=== PATIENT | male | born 2000 | race African-American/Black ===

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

== ENCOUNTER 2021-08-02 23:39 | Emergency (ER) | payer OTHER ==
[2021-08-03] MEDS ORDERED: Ketorolac Tromethamine 30 MG/ML VIAL ONE (00:09)
[2021-08-03] MEDS ORDERED: Morphine 10 MG/ML VIAL ONE (00:35)
[2021-08-03] MEDS ORDERED: Ondansetron PF 4 MG/2 ML Vial ONE (01:55)
[2021-08-03] MEDS ORDERED: Morphine 4 MG/ML VIAL ONE ×2 (01:55→02:54)
[2021-08-03 02:49] LABS: #Lymphocytes 1.2 thou/uL (1.20-3.40); #Monocytes 0.5 thou/uL (0.11-0.59); #Neutrophils 8.4 thou/uL (1.40-6.50); %Basophils 0.1 % (0.0-1.0); %Eosinophils 0.1 % (0.0-10.0); %Lymphocytes 12.3 % (28.0-48.0); %Monocytes 4.7 % (0.0-4.0); %Neutrophils 82.8 % (31.0-61.0); Hemoglobin 14.9 g/dL (14.0-18.0); Mean Corpuscular HGB CONC 33.2 g/dL (32.0-36.0); Mean Corpuscular Hemoglobin 30.2 pg (25.0-35.0); Mean Platelet Volume 7.5 fL (7.4-10.4); Platelet Count 263 thou/uL (130-400); RBC Distribution Width 12.5 % (11.5-14.5); Red Blood Cell (RBC) Count 4.93 mill/uL (4.00-5.20); White Blood Cell (WBC) Count 10.1 thou/uL (4.8-10.8)
[2021-08-03 03:01] LABS: ALT (SGPT) 200 U/L (8-55); AST (SGOT) 152 U/L (5-34); Albumin 4.3 g/dL (3.5-5.0); Alkaline Phosphatase 67 U/L (50-130); Anion Gap 17 mmol/L (10-20); BUN (Urea Nitrogen) 10 mg/dL (8.9-20.6); Bilirubin, Total 0.2 mg/dL (0.2-1.2); Calc. Creatinine Clearance 0 mL/min (70-130); Calcium 9.4 mg/dL (7.8-10.44); Carbon Dioxide 19 mmol/L (22-29); Chloride 106 mmol/L (98-107); Globulin 3.2 g/dL (2.4-3.5); Glucose 115 mg/dL (70-105); Potassium 4.4 mmol/L (3.5-5.1); Protein, Total 7.5 g/dL (6.0-8.3); Sodium 138 mmol/L (136-145)
[2021-08-03 03:50] LABS: SARS-CoV-2 NAA Rapid Test Not Detected (NotDetected)
[2021-08-03] MEDS ORDERED: Ketamine 50 MG/ML (10ML VIAL) ONE (04:06)
[2021-08-03] MEDS ORDERED: diphenhydrAMINE 50 MG/ML VIAL ONE (05:06)
== END 2021-08-03 05:10 | disposition short-term general hospital (02) ==
LOC: ERS 23:39
DX: S42.492A Other displaced fracture of lower end of left humerus, initial encounter for closed fracture (principal); S63.004A Unspecified dislocation of right wrist and hand, initial encounter; S09.90XA Unspecified injury of head, initial encounter; Z20.822 Contact with and (suspected) exposure to COVID-19; V47.6XXA Car passenger injured in collision with fixed or stationary object in traffic accident, initial encounter; Y92.410 Unspecified street and highway as the place of occurrence of the external cause
CPT/HCPCS: 29105; 29125; 70450; 72125; 80053; 85025; 96372; 96374; 96375; J1200; J1885; J2270; J2405; U0002

== ENCOUNTER 2022-01-30 16:05 | Emergency (ER) | payer OTHER ==
[2022-01-30] MEDS ORDERED: Ondansetron ODT 4 MG TAB ONE (16:47)
[2022-01-30] MEDS ORDERED: Dicyclomine 20 MG TAB ONE (16:47)
[2022-01-30] MEDS ORDERED: Acetaminophen 500 MG TAB ONE (16:47)
[2022-01-30] MEDS ORDERED: Ibuprofen 200 MG TAB ONE (16:47)
== END 2022-01-30 18:00 | disposition home or self-care (01) ==
LOC: ERS 16:05
DX: M79.602 Pain in left arm (principal); R19.7 Diarrhea, unspecified
CPT/HCPCS: Q0162

== ENCOUNTER 2022-02-01 16:00 | Emergency (ER) | payer OTHER ==
[2022-02-01 17:07] LABS: Hemoglobin 14.1 g/dL (14.0-18.0); Mean Corpuscular HGB CONC 31.9 g/dL (32.0-36.0); Mean Corpuscular Volume 90.9 fl (78.0-98.0); Mean Platelet Volume 8.2 fL (7.4-10.4); Platelet Count 251 thou/uL (130-400); RBC Distribution Width 13.1 % (11.5-14.5); Red Blood Cell (RBC) Count 4.87 mill/uL (4.00-5.20)
[2022-02-01 17:20] LABS: ALT (SGPT) 48 U/L (8-55); AST (SGOT) 28 U/L (5-34); Albumin 4.2 g/dL (3.5-5.0); Alkaline Phosphatase 83 U/L (50-130); Anion Gap 10 mmol/L (10-20); BUN (Urea Nitrogen) 9 mg/dL (8.9-20.6); Bilirubin, Total 0.5 mg/dL (0.2-1.2); Calc. Creatinine Clearance 0 mL/min (70-130); Calcium 9.5 mg/dL (7.8-10.44); Carbon Dioxide 24 mmol/L (22-29); Chloride 107 mmol/L (98-107); Estimated GFR 111; Globulin 2.9 g/dL (2.4-3.5); Glucose 90 mg/dL (70-105); Lipase 85 U/L (8-78); Potassium 3.6 mmol/L (3.5-5.1); Protein, Total 7.1 g/dL (6.0-8.3); Sodium 137 mmol/L (136-145)
[2022-02-01 17:21] LABS: Eosinophils 3 % (0-10); Lymphocytes 51 % (28-48); MDiff Complete? YES; Monocytes 5 % (0-4); Neutrophil 37 % (31-61); Platelet Morphology Comment Appears Adequate; RBC Morphology Normal; Reactive Lymphocytes 4 % (0-10)
== END 2022-02-01 17:52 | disposition home or self-care (01) ==
LOC: ERS 16:00
DX: R10.84 Generalized abdominal pain (principal)
CPT/HCPCS: 36415; 80053; 83690; 85025; 99284

== ENCOUNTER 2022-02-20 16:15 | Emergency (ER) | payer OTHER | END 2022-02-20 18:11 | disposition home or self-care (01) | LOC: ERS 16:15 | DX: S62.001A Unspecified fracture of navicular [scaphoid] bone of right wrist, initial encounter for closed fracture (principal); W18.30XA Fall on same level, unspecified, initial encounter ==

== ENCOUNTER 2022-02-25 15:26 | Emergency (ER) | payer OTHER | END 2022-02-25 16:17 | disposition home or self-care (01) | LOC: ERS 15:26 | DX: M25.531 Pain in right wrist (principal) | CPT/HCPCS: 99283 ==

== ENCOUNTER 2022-02-26 22:03 | Emergency (ER) | payer OTHER | END 2022-02-27 00:01 | disposition home or self-care (01) | LOC: ERS 22:03 | DX: G90.511 Complex regional pain syndrome I of right upper limb (principal) ==

== ENCOUNTER 2022-03-06 13:09 | Emergency (ER) | payer OTHER | END 2022-03-06 14:07 | disposition home or self-care (01) | LOC: ERS 13:09 | DX: M25.531 Pain in right wrist (principal) | CPT/HCPCS: 99281 ==

== ENCOUNTER 2022-03-26 16:41 | Emergency (ER) | payer OTHER ==
[2022-03-26] MEDS ORDERED: Ibuprofen 200 MG TAB ONE (17:19)
== END 2022-03-26 17:30 | disposition home or self-care (01) ==
LOC: ERS 16:41
DX: S60.222A Contusion of left hand, initial encounter (principal); W17.89XA Other fall from one level to another, initial encounter

== ENCOUNTER 2022-03-28 19:30 | Emergency (ER) | payer OTHER ==
[2022-03-28] MEDS ORDERED: Ketorolac Tromethamine 30 MG/ML VIAL ONE (19:55)
== END 2022-03-28 20:15 | disposition home or self-care (01) ==
LOC: ERS 19:30
DX: S50.02XA Contusion of left elbow, initial encounter (principal); V86.95XA Unspecified occupant of 3- or 4- wheeled all-terrain vehicle (ATV) injured in nontraffic accident, initial encounter
CPT/HCPCS: 96372; J1885

== ENCOUNTER 2022-03-29 22:43 | Emergency (ER) | payer OTHER ==
[2022-03-30] MEDS ORDERED: Acetaminophen 500 MG TAB ONE (00:51)
== END 2022-03-30 00:53 | disposition home or self-care (01) ==
LOC: ERS 22:43
DX: S50.02XA Contusion of left elbow, initial encounter (principal); V86.95XA Unspecified occupant of 3- or 4- wheeled all-terrain vehicle (ATV) injured in nontraffic accident, initial encounter
CPT/HCPCS: 99281

== ENCOUNTER 2022-04-03 21:21 | Emergency (ER) | payer OTHER | END 2022-04-04 01:46 | disposition home or self-care (01) | LOC: ERS 21:21 | DX: M25.531 Pain in right wrist (principal); G89.29 Other chronic pain; W01.0XXA Fall on same level from slipping, tripping and stumbling without subsequent striking against object, initial encounter ==

== ENCOUNTER 2022-04-24 23:55 | Emergency (ER) | payer OTHER | END 2022-04-25 01:59 | disposition home or self-care (01) | LOC: ERS 23:55 | DX: M79.602 Pain in left arm (principal); V86.56XA Driver of dirt bike or motor/cross bike injured in nontraffic accident, initial encounter ==

== ENCOUNTER 2022-04-26 14:37 | Emergency (ER) | payer OTHER | END 2022-04-26 15:32 | disposition home or self-care (01) | LOC: ERS 14:37 | DX: G89.18 Other acute postprocedural pain (principal); M79.602 Pain in left arm; F17.290 Nicotine dependence, other tobacco product, uncomplicated | CPT/HCPCS: 99283 ==

== ENCOUNTER 2024-05-11 15:24 | Emergency (ER) | payer OTHER, SELFPAY ==
[2024-05-11] MEDS ORDERED: Ketorolac Tromethamine 30 MG (1 mL) VIAL ONE (17:34)
== END 2024-05-11 17:59 ==
LOC: ERS 15:24
DX: M76.51 Patellar tendinitis, right knee (principal)
CPT/HCPCS: 96372; 99283; J1885